=== PATIENT | female | born 1980 | race Caucasian/White ===

== ENCOUNTER 2019-01-28 14:00 | Emergency (ER) | payer MEDICAID | END 2019-01-28 16:44 | disposition home or self-care (01) | LOC: FTE 14:00 | DX: O99.613 Diseases of the digestive system complicating pregnancy, third trimester (principal); K64.9 Unspecified hemorrhoids; Z3A.34 34 weeks gestation of pregnancy | CPT/HCPCS: 99284; Z7502 ==

== ENCOUNTER 2019-01-28 16:52 | Outpatient (CLI) | payer MEDICAID ==
[2019-01-28] MEDS: TERBUTALINE 1 MG/ML INJ SC ×2 (17:45→18:33)
[2019-01-28] MEDS: LACTATED RINGER'S 1,000 ML IV (17:45)
[2019-01-28 17:49] LABS: ADD UMIC YES; UR ASCORBIC ACID NEGATIVE (NEGATIVE); UR BACTERIA FEW /HPF (NONE SEEN); UR BILIRUBIN (Dip) NEGATIVE (NEGATIVE); UR BLOOD (Dip) NEGATIVE (NEGATIVE); UR CLARITY CLOUDY (CLEAR); UR COLOR YELLOW (YELLOW); UR GLUCOSE (Dip) NEGATIVE (NEGATIVE); UR KETONES (Dip) NEGATIVE (NEGATIVE); UR LEUKOCYTE ESTERASE (Dip) 1+ Leu/ul (NEGATIVE); UR MUCUS MODERATE /HPF (NONE SEEN); UR NITRITE (Dip) NEGATIVE (NEGATIVE); UR RBC 1 /HPF (0-5); UR SPECIFIC GRAVITY (Dip) 1.023 (1.003-1.030); UR SQUAMOUS EPITHELIAL CELL MANY /HPF (FEW); UR TOTAL PROTEIN (Dip) NEGATIVE (NEGATIVE); UR UROBILINOGEN (Dip) NEGATIVE (NEGATIVE); UR WBC 10 /HPF (0-5)
== END 2019-01-28 20:55 | disposition home or self-care (01) ==
LOC: OBT 16:52 → L-D 16:53 → OBT 20:55
DX: O62.9 Abnormality of forces of labor, unspecified (principal); O09.523 Supervision of elderly multigravida, third trimester; Z3A.33 33 weeks gestation of pregnancy
CPT/HCPCS: 36415; 76817; 81001; 82731; 87086; 96360; 96361; 96372